=== PATIENT | female | born 1980 | race Asian ===

== ENCOUNTER 2021-04-16 15:27 | Emergency (ER) | payer OTHER ==
[~2021-04-16] VITALS: Ht 167.6 cm; Wt 63.5 kg
[~2021-04-16 15:27] MED LIST: HYDACE5 PO; IBUP800 PO; MULVITMINE PO; OXYACE5T PO; STOMUL PO
[2021-04-16] MEDS ORDERED: BENZ100A PO (18:26)
== END 2021-04-16 18:51 | disposition home or self-care (01) ==
LOC: ER 15:27
DX: J06.9 Acute upper respiratory infection, unspecified (principal)
CPT/HCPCS: 71045; 99283-25

== ENCOUNTER 2024-10-17 11:56 | Day surgery (SDC) | payer OTHER ==
[~2024-10-17] VITALS: Ht 160 cm; Wt 69.2 kg
[2024-10-17] VITALS (21 sets, daily range): BP systolic 100–116; BP diastolic 67–83
[~2024-10-17 11:56] MED LIST changes: +ATOR20 PO; +BENZ100A PO; +FLUO10 PO
--- NOTE | 2024-10-17 12:52 | NUR ---
History, Chart, Medications and Allergies reviewed before start of procedure. Pre-Op teaching done. Pt verbalizes understanding. Patient confirms NPO status and agrees with scheduled surgery. Patient states colon prep results LIGHT YELLOW. DAUGHTER AT BS.
--- NOTE | 2024-10-17 13:33 | NUR ---
10/17/24 Namita Hopkins CONFIRMED AND REVIEWED H&P, MEDCICATIONS, ALLERGIES, MEDICAL HISTORY, RESPIRATORY HISTORY, VITAL SIGNS, 3-LEAD EKG, CONSENTS, AND PHYSICIAN ORDERS. PATIENT CONFIRMS NPO STATUS AND AGREES WITH SCHEDULED PROCEDURE. MONITOR INTACT WITH CONTINUOUS PULSE OXIMETRY, CAPNOGRAPHY, 3-LEAD EKG, INTERMITTENT BP. SUPPLEMENTAL O2 TO BE TITRATED THROUGHOUT PROCEDURE TO MAINTAIN O2 SATURATION ABOVE 90%. PATIENT DETERMINED TO BE ASA APPROPRIATE FOR PROPOFOL SEDATION PRIOR TO START OF PROCEDURE BY DR. SHEPPARD.
[2024-10-17] MEDS ORDERED: Midazolam HCl 1MG / ML 2ML Vial ONE (13:41)
--- NOTE | 2024-10-17 14:54 | NUR ---
DISCHARGE NOTE PT A&OX4, BREATHING RA, TOLERATING PO INTAKE, DAUGHTER AT BEDSIDE. Patient up to Ambulate independently. Gait steady. Discharge instructions reviewed with patient. Patient verbalizes understanding. Copy given to patient to take home. Discharged via wheelchair to private car for ride home.
== END 2024-10-17 14:50 | disposition home or self-care (01) ==
LOC: ORSCMMR 11:56 → ORD 14:30 → ORSCMMR 14:30
PROVIDERS: Family Medicine
PROC: 0DBN8ZX Excision of Sigmoid Colon, Via Natural or Artificial Opening Endoscopic, Diagnostic (ICD-10-PCS; principal; 2024-10-17 13:30)
DX: Z12.11 Encounter for screening for malignant neoplasm of colon (principal); K63.5 Polyp of colon; K64.8 Other hemorrhoids; K64.4 Residual hemorrhoidal skin tags; F32.A Depression, unspecified; Z79.899 Other long term (current) drug therapy
CPT/HCPCS: 88305; J2250; J2704; J7120